=== PATIENT | male | born 1995 | race Caucasian/White ===

== ENCOUNTER 2016-05-14 20:22 | Inpatient (IN) | payer OTHER ==
[2016-05-14 20:21] VITALS: O2SAT 96
[2016-05-14] MEDS ORDERED: HYDROmorphone HCL PF 1 MG/ML VIAL ONE (20:40)
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
[2016-05-14] MEDS ORDERED: ceFAZolin 2 GM PREMIX 50 ML IV ONE (20:45)
[2016-05-14] MEDS ORDERED: TETANUS/DIPHTHERIA TOXOID ADULT 0.5 ML VIAL IM ONE (20:45)
[2016-05-14] MEDS ORDERED: MORPHINE SULFATE 4 MG/ML INJ IV PUSH ONE (20:45)
[2016-05-14 20:49] LABS: AUTOMATED NEUTROPHIL # 18.4 TH/MM3 (1.8-7.7); BASOPHIL # 0.1 TH/MM3 (0-0.2); BASOPHIL % 0.5 % (0.0-2.0); EOSINOPHIL # 0.3 TH/MM3 (0-0.4); EOSINOPHIL % 1.4 % (0.0-4.0); HEMO FLAGS DIFF FINAL; LYMPH % 15.1 % (9.0-44.0); LYMPHOCYTE # 3.6 TH/MM3 (1.0-4.8); MEAN CELL VOLUME 86.4 FL (80.0-100.0); MEAN CORPUSCULAR HEMOGLOBIN 29.5 PG (27.0-34.0); MEAN CORPUSCULAR HGB CONC 34.1 % (32.0-36.0); MONO % 5.4 % (0.0-8.0); NEUT % 77.6 % (16.0-70.0); PLATELET COUNT 313 TH/MM3 (150-450); RED BLOOD COUNT 4.87 MIL/MM3 (4.50-5.90); RED CELL DISTRIBUTION WIDTH 13.6 % (11.6-17.2); WHITE BLOOD COUNT 23.8 TH/MM3 (4.0-11.0)
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
[2016-05-14] MEDS ORDERED: IOHEXOL 350 MG/ML 10 ML VIAL (for RAD DIAG) IV ONE (20:52)
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
[2016-05-14 20:56] LABS: I-STAT POTASSIUM 3.5 MMOL/L (3.5-4.9)
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
[2016-05-14 21:07] LABS: APTT (PATIENT) 22.6 SEC (24.3-30.1); PROTHROMBIN TIME - PATIENT 11.2 SEC (9.8-11.6)
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
[2016-05-14] MEDS ORDERED: MISCELLANEOUS NURSING INFORMATION XX SCH (21:15)
[2016-05-14] MEDS ORDERED: ONDANSETRON HCL 4 MG/2 ML VIAL IV PRN (21:15)
[2016-05-14] MEDS ORDERED: MAGNESIUM HYDROXIDE SUSP 30 ML CUP PO PRN (21:15)
[2016-05-14] MEDS ORDERED: SODIUM CHLORIDE 0.9% FLUSH 10 ML FLUSH IV FLUSH PRN (21:15)
[2016-05-14] MEDS ORDERED: CHLORHEXIDINE GLUCONATE 2 % 1 PACK (2 CLOTHS) TOP PRN (21:15)
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
[2016-05-14 21:30] VITALS: BP 132/68; PULSE 97; RESP 25; TEMP 98.6; O2SAT 99
[2016-05-14] MEDS: LACTATED RINGER'S 1000 ML INJ 1,000 ML IV SCH (21:46)
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
[2016-05-14 23:07] VITALS: O2SAT 98
[2016-05-14] MEDS: HYDROmorphone HCL PF 1 MG/ML VIAL IVP PRN (23:23)
[2016-05-15] VITALS (11 sets, daily range): BP systolic 113–135; BP diastolic 56–66; PULSE 72–98; RESP 18–28; TEMP 98–98.9; O2SAT 95–100
[2016-05-15] MEDS: CHLORHEXIDINE GLUCONATE 2 % 1 PACK (2 CLOTHS) TOP SCH ×2 (04:00→19:51)
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
[2016-05-15 04:09] LABS: AUTOMATED NEUTROPHIL # 15.7 TH/MM3 (1.8-7.7); BASOPHIL % 0.2 % (0.0-2.0); EOSINOPHIL % 0.1 % (0.0-4.0); HEMO FLAGS DIFF FINAL; LYMPHOCYTE # 1.1 TH/MM3 (1.0-4.8); MEAN CELL VOLUME 86.9 FL (80.0-100.0); MEAN CORPUSCULAR HEMOGLOBIN 29.8 PG (27.0-34.0); MEAN CORPUSCULAR HGB CONC 34.3 % (32.0-36.0); MONO % 10.3 % (0.0-8.0); NEUT % 83.4 % (16.0-70.0); PLATELET COUNT 233 TH/MM3 (150-450); RED BLOOD COUNT 4.49 MIL/MM3 (4.50-5.90); RED CELL DISTRIBUTION WIDTH 13.7 % (11.6-17.2); WHITE BLOOD COUNT 18.8 TH/MM3 (4.0-11.0)
[2016-05-15 04:50] LABS: BICARBONATE 25.3 MEQ/L (21.0-32.0)
[2016-05-15] MEDS: LACTATED RINGER'S 1000 ML INJ 1,000 ML IV SCH ×2 (05:03→13:03)
[2016-05-15] MEDS ORDERED: DOCUSATE SODIUM 100 MG CAP PO SCH (09:00)
[2016-05-15] MEDS: BACITRACIN TOP OINT 15 GM TUBE TOP SCH ×2 (09:30→20:52)
[2016-05-15] MEDS: METHOCARBAMOL 500 MG TAB PO SCH ×3 (11:16→20:51)
[2016-05-15] MEDS: FAMOTIDINE 20 MG TAB PO SCH ×2 (11:16→20:51)
[2016-05-15] MEDS: DOCUSATE SODIUM 50 MG/SENNA 8.6 MG TAB PO SCH ×2 (12:47→20:51)
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
[2016-05-15] MEDS: HYDROmorphone HCL PF 1 MG/ML VIAL IVP PRN (20:52)
[2016-05-16] VITALS: BP 127/65; PULSE 87; RESP 18; TEMP 98.6; O2SAT 95
[2016-05-16 04:00] VITALS: BP 144/83; PULSE 95; RESP 20; TEMP 98.9; O2SAT 96
[2016-05-16 05:12] LABS: AUTOMATED NEUTROPHIL # 7.1 TH/MM3 (1.8-7.7); BASOPHIL # 0.1 TH/MM3 (0-0.2); BASOPHIL % 0.9 % (0.0-2.0); EOSINOPHIL # 0.9 TH/MM3 (0-0.4); EOSINOPHIL % 7.7 % (0.0-4.0); HEMATOCRIT 38.7 % (39.0-51.0); HEMO FLAGS DIFF FINAL; LYMPH % 16.4 % (9.0-44.0); LYMPHOCYTE # 1.8 TH/MM3 (1.0-4.8); MEAN CELL VOLUME 87.6 FL (80.0-100.0); MEAN CORPUSCULAR HGB CONC 33.1 % (32.0-36.0); MONO % 11.6 % (0.0-8.0); NEUT % 63.4 % (16.0-70.0); PLATELET COUNT 165 TH/MM3 (150-450); RED BLOOD COUNT 4.42 MIL/MM3 (4.50-5.90); RED CELL DISTRIBUTION WIDTH 13.6 % (11.6-17.2); WHITE BLOOD COUNT 11.1 TH/MM3 (4.0-11.0)
[2016-05-16 05:42] LABS: ALKALINE PHOSPHATASE 56 U/L (45-117); ALT (GPT) 512 U/L (9-52); ANION GAP 8 MEQ/L (5-15); AST (GOT) 248 U/L (15-39); BICARBONATE 26.1 MEQ/L (21.0-32.0); BLOOD UREA NITROGEN 12 MG/DL (7-18); CHLORIDE 104 MEQ/L (98-107); GLOMERULAR FILTRATION RATE 94 ML/MIN (>89); POTASSIUM 4.2 MEQ/L (3.5-5.1); SODIUM (NA) 138 MEQ/L (136-145); TOTAL BILIRUBIN ADULT 2.2 MG/DL (0.2-1.0)
[2016-05-16] MEDS: METHOCARBAMOL 500 MG TAB PO SCH (06:15)
[2016-05-16] MEDS: FAMOTIDINE 20 MG TAB PO SCH (07:37)
[2016-05-16] MEDS: DOCUSATE SODIUM 50 MG/SENNA 8.6 MG TAB PO SCH (07:37)
[2016-05-16 08:00] VITALS: BP 123/69; PULSE 81; RESP 16; TEMP 96.8; O2SAT 96
[2016-05-16] MEDS ORDERED: METHOCARBAMOL 500 MG TAB PO SCH (08:30)
[2016-05-16 10:03] VITALS: O2SAT 96
[2016-05-16] MEDS ORDERED: PERC5TAB12 PO (11:28)
[2016-05-16] MEDS ORDERED: METH500T3 PO (11:56)
[2016-05-16] MEDS ORDERED: SENN1TAB PO (11:56)
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
== END 2016-05-16 14:03 | disposition home or self-care (01) | DRG 964 ==
LOC: NEPI 20:22 → NEDA 20:49 → EDBD 20:49 → N03B 21:09 → N06B 05-15 18:44
PROVIDERS: ADMIT Surgery; ATTEND Surgery
DX: S27.0XXA Traumatic pneumothorax, initial encounter (principal); S36.115A Moderate laceration of liver, initial encounter; S06.0X9A Concussion with loss of consciousness of unspecified duration, initial encounter; S36.031A Moderate laceration of spleen, initial encounter; S36.039A Unspecified laceration of spleen, initial encounter; S27.322A Contusion of lung, bilateral, initial encounter; S32.018A Other fracture of first lumbar vertebra, initial encounter for closed fracture; S36.113A Laceration of liver, unspecified degree, initial encounter; V58.5XXA Driver of pick-up truck or van injured in noncollision transport accident in traffic accident, initial encounter; Y92.410 Unspecified street and highway as the place of occurrence of the external cause; Y93.89 Activity, other specified; Y99.9 Unspecified external cause status; R73.03 Prediabetes; F17.210 Nicotine dependence, cigarettes, uncomplicated
CPT/HCPCS: 70450; 70486; 71010; 71260; 72125; 72170; 74177; 80048; 80053; 82435; 82565; 82947; 84132; 84295; 84520; 85025; 85610; 85730; 86850; 86900; 86901; 87641; 94150; 96374; 99291; G0390; J0690; J1170; J7120; Q9967